=== PATIENT | male | born 1990 | race Caucasian/White ===

== ENCOUNTER 2022-06-16 07:01 | Emergency (ER) | payer MEDICAID, SELFPAY ==
--- NOTE | ~2022-06-16 | XR_ITS ---
EXAMINATION: XR CHEST CLINICAL INFORMATION: SOB and cough COMPARISON: None TECHNIQUE: Frontal view of the chest was obtained. FINDINGS: No significant abnormality is noted involving the heart, lungs, mediastinum, bony thorax or soft tissues. XR/XR chest 1V IMPRESSION: Unremarkable chest examination.
[2022-06-16 07:08] VITALS: BP 138/80; PULSE 110; RESP 18; TEMP 36.7; O2SAT 94; BMI 32.9
[2022-06-16 07:21] VITALS: BP 142/87; PULSE 108; RESP 16; TEMP 36.9; O2SAT 94
--- NOTE | 2022-06-16 07:43 | PC.NURSE ---
Addendum entered by Lavell Dickinson RN 06/16/22 09:06: AUDIBLE WHEEZES, PT REPORTED ABD DISTENSION, NON NOTED ON ASSESSMENT, LAST BM THIS MORNING. Original Note: PT REPORTS DIFFICULTY BREATHING SINCE WAKING UP THIS MORNING. HE REPORTS THAT HIS CHEST HURTS TO BREATH AND COUGH AND IT PREVENTS HIM FROM TAKING A DEEP BREATH OR COUGH EFFECTIVELY. PT HAS HX OF ASTHMA, DOES NOT HAVE PUMP.
--- NOTE | 2022-06-16 07:44 | ED_ITS ---
HPI - SOB/Dyspnea General Chief Complaint: Dyspnea Stated Complaint: diff breathing Time Seen by Provider: 06/16/22 07:29 Source: patient and family Mode of arrival: ambulatory Limitations: no limitations History of Present Illness HPI Narrative: 32-year-old male came in for evaluation of shortness of breath and coughing has been getting worse started about 2 weeks ago. Patient is actively smoker, been having shortness of breath and wheezing with coughing with green sputum patient cannot take a deep breath because of chest pain with coughing. No fever, no chills, no recent travel, patient recently had the influenza infection currently decline flu-like symptoms. Related Data Previous Rx's Medication Instructions Recorded albuterol sulfate 2.5 mg/3 mL 2.5 mg (3 mL) inhalation Q4-6H PRN 06/16/22 (0.083 %) solution for nebulization shortness of breath or wheezing #90 mL albuterol sulfate 90 mcg/actuation 1 inh inhalation QID PRN shortness 06/16/22 aerosol inhaler (ProAir HFA) of breath or wheezing #6.7 grams azithromycin 250 mg tablet See Rx Instructions PO .COMPLEX #6 06/16/22 (Zithromax Z-Sheng) tabs prednisone 20 mg tablet 20 mg PO BID #10 tabs 06/16/22 Allergies Allergy/AdvReac Type Severity Reaction Status Date / Time No Known Allergies Allergy Unverified 02/17/20 16:24 Review of Systems Review of Systems: All other systems are reviewed and are negative Constitutional: Reports as per HPI and Reports no additional constitutional complaints Eyes: Reports as per HPI and Reports no additional eye complaints Reports system reviewed and no additional complaints, except as documented Cardiovascular: Reports as per HPI and Reports no additional cardiovascular complaints Respiratory: Reports as per HPI and Reports no additional respiratory complaints Gastrointestinal: Reports as per HPI and Reports no additional gastrointestinal complaints Genitourinary: Reports no additional female genitourinary complaints Musculoskeletal: Reports no additional musculoskeletal complaints Skin/Breast: Reports system reviewed and no additional complaints, except as docu Psychiatric: Reports no additional psychiatric complaints Endocrine: Reports no additional endocrine complaints Hematologic/Lymphatic: Reports no additional hematologic/lymphatic complaints Allergic/Immunologic: Reports no additional allergic/immunologic complaints Reports system reviewed and no additional complaints, except as documented and Reports Abnormal speech present [facility] Social History Social History Smoked in Last 30 Days: Yes Use of substances other than those prescribed or required for medical reasons: Yes Substance Use Type: Marijuana Advance Directives: No Physical Exam Vital Signs: Vital Signs: Last Vital Signs Temp 98.5 F 06/16/22 07:21 Pulse 88 06/16/22 08:40 Resp 18 06/16/22 08:40 BP 142/87 H 06/16/22 07:21 Pulse Ox 94 06/16/22 07:21 O2 Del Method 06/16/22 07:21 BMI result Body Mass Index 32.9 Vital signs have been reviewed as appeared to be correct. Blood pressure normal. Heart rate normal. Respiration rate normal. Temperature normal. Oxygen saturation normal. Appearance: Alert. Oriented X3. No acute distress. Head: Normal external exam. Normocephalic. Atraumatic. No Kaufman signs noted. No raccoon eyes noted Eyes: PERRLA. EOMI. Conjunctiva and sclera normal. Eyelids normal. ENT: TM's Normal. Pharynx normal. Uvula midline. Moist mucous membranes. No trismus noted. No drooling noted. No muffled voice noted. Neck: Normal inspection. Neck supple. FROM. No adenopathy. Thyroid Normal. No meningeal signs. No neck mass noted. CVS: Normal heart rate and rhythm. Heart sound normal. No murmurs noted. Pulses normal throughout. Respiratory: No respiratory distress. Painless inspiration. Breath sounds normal. Mild diffuse expiratory wheezing with prolonged expiration. Chest nontender. No accessory muscle usage noted or decreased air movement noted. Abdomen: Soft and nontender. Bowel sounds normal in all 4 quadrants. No distention noted. No organomegaly noted. No visible injury noted. Back: No CVA tenderness. Full range of motion noted. Skin: Skin warm and dry. Normal skin color. Normal skin turgor. No rashes/lesions/lacerations noted. Extremities: No lower extremity edema. Extremities exhibit normal range of motion. Extremities nontender. Neuro: Oriented X 3. Cranial nerve exam: II-XII are grossly intact No motor deficit. No sensory deficit. Reflexes normal. Course Course Course Narrative: 32-year-old male with history of asthma came in with coughing and difficulty breathing exam is consistent with an asthma exacerbation/bronchitis. Patient is a smoker will start the patient on prednisone for 5 days, albuterol, Z-Sheng. Medications Administered Discontinued Medications Generic Name Dose Route Start Last Admin Trade Name Frankq PRN Reason Stop Dose Admin Albuterol Sulfate 2.5 mg 06/16/22 07:42 06/16/22 08:37 Albuterol Sulfate (0.083%) 2.5 Mg/3 Ml Vial.Neb INHALE 06/16/22 07:43 2.5 mg ONCE ONE Administration Albuterol Sulfate 5 mg/ 7.5 mg 06/16/22 07:42 06/16/22 08:36 Albuterol Sulfate 2.5 mg INHALE 06/16/22 07:43 7.5 mg ONCE ONE Administration Guaifenesin 600 mg 06/16/22 08:07 06/16/22 08:21 Guaifenesin [place] 600 Mg Tab.Er.12h PO 06/16/22 08:08 600 mg ONCE ONE Administration Magnesium Sulfate 2 gm in 50 mls @ 25 mls/hr 06/16/22 07:42 06/16/22 08:01 Magnesium Sulfate/H2o IV 06/16/22 09:41 25 mls/hr ONCE ONE Administration Ipratropium [place] 0.5 mg 06/16/22 07:42 06/16/22 08:36 Ipratropium [place] 0.5 Mg/2.5 Ml Solution INHALE 06/16/22 07:43 0.5 mg ONCE ONE Administration Methylprednisolone Sodium Succinate 125 mg 06/16/22 07:42 06/16/22 08:01 Methylprednisolone Sod Succ 125 Mg/2 Ml Vial IVPUSH 06/16/22 07:43 125 mg ONCE ONE Administration Ondansetron HCl 4 mg 06/16/22 08:07 06/16/22 08:22 Ondansetron Hcl 4 Mg/2 Ml Vial IVPUSH 06/16/22 08:08 4 mg ONCE ONE Administration Medical Decision Making Differential Diagnosis Differential Diagnoses: The differential diagnosis associated with the presentation includes (Acute asthma exacerbation, acute bronchitis, pneumonia, viral bronchitis.) Lab Data MDM Lab Attestation statement: I reviewed the patient's lab results. Labs: Lab Results 06/16/22 Range/Units 07:46 Influenza Type A (PCR) NEGATIVE (Negative) Influenza Type B (PCR) NEGATIVE (Negative) RSV RNA Qual (PCR) NEGATIVE (Negative) SARS-CoV-2 RNA (RT-PCR) NEGATIVE (Negative) Independent Interpretation I performed an independent interpretation of an: Plain X-Ray (Chest: No acute infiltrate.) Radiology Impression Discussion of test interpretation with radiology: I have reviewed the radiologist's reading. Discharge Plan Discharge Clinical Impression: Asthma with exacerbation Patient Disposition: Home, Self-Care Instructions: Asthma (ED) Prescriptions: New prednisone 20 mg tablet 20 mg PO BID Qty: 10 0RF albuterol sulfate 2.5 mg /3 mL (0.083 %) solution for nebulization 2.5 mg inhalation Q4-6H PRN (Reason: shortness of breath or wheezing) Qty: 90 0RF albuterol sulfate [ProAir HFA] 90 mcg/actuation HFA aerosol inhaler 1 inh inhalation QID PRN (Reason: shortness of breath or wheezing) Qty: 6.7 0RF azithromycin [Zithromax Z-Sheng] 250 mg tablet See Rx Instructions .ROUTE .COMPLEX Qty: 6 0RF Rx Instructions: For 250 mg dose pack: take 500 mg today (day 1), then 250 mg for 4 days (days 2-5) Stand Alone Forms: Work/School Release
[2022-06-16] MEDS: methylPREDNISolone Sod Succ 125 MG/2 ML VIAL IVPUSH (08:01)
[2022-06-16] MEDS: Magnesium Sulfate/H2O 2 GM/50 ML PIGGYBACK IV (08:01)
[2022-06-16] MEDS: guaiFENesin LA 600 MG TAB.ER.12H PO (08:21)
[2022-06-16] MEDS: ondansetron HCL 4 MG/2 ML VIAL IVPUSH (08:22)
[2022-06-16] MEDS: Ipratropium Bromide 0.5 MG/2.5 ML SOLUTION INHALE (08:36)
[2022-06-16] MEDS: Albuterol Sulfate 5 MG, Albuterol Sulfate (0.083%) 2.5 MG 7.5 MG INHALE (08:36)
[2022-06-16] MEDS: Albuterol Sulfate (0.083%) 2.5 MG/3 ML VIAL.NEB INHALE (08:37)
[2022-06-16 08:40] VITALS: PULSE 88; RESP 18; O2SAT 94
[2022-06-16 08:40] LABS: Influenza A PCR NEGATIVE (Negative); Influenza B PCR NEGATIVE (Negative); Resp Syncy Virus RNA Qual PCR NEGATIVE (Negative); SARS COV2 PCR INHOUSE NEGATIVE (Negative)
--- NOTE | 2022-06-16 09:18 | PC.NURSE ---
IV INSERTED, MEDS GIVEN DOCUMENTED.
[2022-06-16 10:09] VITALS: BP 134/74; PULSE 98; RESP 16; O2SAT 92
== END 2022-06-16 10:24 | disposition home or self-care (01) ==
PROVIDERS: Emergency Provider Emergency Medicine
DX: J45.901 Unspecified asthma with (acute) exacerbation (principal); R06.02 Shortness of breath; Z20.822 Contact with and (suspected) exposure to COVID-19; Z20.828 Contact with and (suspected) exposure to other viral communicable diseases; Z79.899 Other long term (current) drug therapy
CPT/HCPCS: 0241U; 71045; 94640; 96365; 96366; 96375; 99284; 99285; J2405; J2930; J3475

== ENCOUNTER 2022-08-04 17:13 | Emergency (ER) | payer MEDICAID, SELFPAY ==
--- NOTE | ~2022-08-04 | XR_ITS ---
EXAMINATION: XR CHEST CLINICAL INFORMATION: Chest pain. COMPARISON: Chest radiograph 06/16/2022. TECHNIQUE: 2 views of the chest were obtained. FINDINGS: No significant abnormality is noted involving the heart, lungs, mediastinum, bony thorax or soft tissues. XR/XR chest 2V IMPRESSION: Unremarkable examination.
--- NOTE | 2022-08-04 17:15 | ECG_ITS ---
Test Reason : CHEST PAIN Blood Pressure : / mmHG Vent. Rate : 093 BPM Atrial Rate : 093 BPM P-R Int : 142 ms QRS Dur : 082 ms QT Int : 346 ms P-R-T Axes : 062 071 017 degrees QTc Int : 430 ms Normal sinus rhythm Normal ECG No previous ECGs available Referred By: Santa Fong Electronically Signed By:JENNIFER SAUCEDO
--- NOTE | 2022-08-04 17:37 | ED.URI ---
HPI - URI/Sore Throat General Chief Complaint: Upper Respiratory Symptoms <Santa Fong NP - Last Filed: 08/04/22 17:41> Stated Complaint: chest pain, difficulty breathing <Santa Fong NP - Last Filed: 08/04/22 17:41> Time Seen by Provider: 08/04/22 19:13 <Santa Fong NP - Last Filed: 08/04/22 17:41> Source: patient <Brie Zepeda NP - Last Filed: 08/04/22 23:32> Mode of arrival: ambulatory <RUPERTO Chung Last Filed: 08/04/22 23:32> Limitations: no limitations <Brie Zepeda NP - Last Filed: 08/04/22 23:32> History of Present Illness HPI Narrative: 32-year-old male presents with shortness breath, chest tightness, back pain, was tested positive for COVID-19 on Friday. Patient states he is unable to catch his breath. <Brie Zepeda NP - Last Filed: 08/04/22 23:32> MD elicited complaint: cough and other (Wheezing, shortness breath) <Brie Zepeda NP - Last Filed: 08/04/22 23:32> Pertinent past history: other (COVID-19) <Brie Zepeda NP - Last Filed: 08/04/22 23:32> Onset (ago): day(s) <Brie Zepeda NP - Last Filed: 08/04/22 23:32> Consistency: constant <Brie Zepeda NP - Last Filed: 08/04/22 23:32> Severity: moderate <RUPERTO Chung Last Filed: 08/04/22 23:32> Pain scale (0-10): 6 <Brie Zepeda NP - Last Filed: 08/04/22 23:32> Description of mucous: clear <Brie Zepeda NP - Last Filed: 08/04/22 23:32> Able to tolerate fluids by mouth: Yes <Brie Zepeda NP - Last Filed: 08/04/22 23:32> Exacerbating factors: exertion, speaking and deep breaths <Brie Zepeda NP - Last Filed: 08/04/22 23:32> Relieving factors: nothing <Brie Zepeda NP - Last Filed: 08/04/22 23:32> Associated symptoms: headache, nasal congestion, cough and shortness of breath <Brie Zepeda NP - Last Filed: 08/04/22 23:32> Treatments prior to arrival: other (Albuterol, Tylenol, Motrin) <RUPERTO Chung Last Filed: 08/04/22 23:32> Related Data Home Medications: Previous Rx's Medication Instructions Recorded albuterol sulfate 2.5 mg/3 mL 2.5 mg (3 mL) inhalation Q4-6H PRN 06/16/22 (0.083 %) solution for nebulization shortness of breath or wheezing #90 mL albuterol sulfate 90 mcg/actuation 1 inh inhalation QID PRN shortness 06/16/22 aerosol inhaler (ProAir HFA) of breath or wheezing #6.7 grams azithromycin 250 mg tablet See Rx Instructions PO .COMPLEX #6 06/16/22 (Zithromax Z-Sheng) tabs prednisone 20 mg tablet 20 mg PO BID #10 tabs 06/16/22 albuterol sulfate 2.5 mg/3 mL 2.5 mg (3 mL) inhalation Q6H #75 mL 08/04/22 (0.083 %) solution for nebulization albuterol sulfate 90 mcg/actuation 2 puff inhalation Q4-6H PRN 08/04/22 aerosol inhaler shortness of breath or wheezing #6.7 grams prednisone 20 mg tablet 40 mg PO DAILY 5 days #10 tabs 08/04/22 <Santa Fong NP - Last Filed: 08/04/22 17:41> Allergies/Adverse Reactions: Allergies Allergy/AdvReac Type Severity Reaction Status Date / Time No Known Allergies Allergy Unverified 02/17/20 16:24 <Santa Fong NP - Last Filed: 08/04/22 17:41> Review of Systems Review of Systems: Constitutional: No Fever, No Chills Cardiovascular: Positive Chest wall Pain, positive SOB Respiratory: Positive Cough, positive Dyspnea, positive wheezing Gastrointestinal: No Nausea, No Vomiting, No Diarrhea, No abdominal Pain Genitourinary: No Dysuria, No Hematuria Musculoskeletal: positive back pain, No Myalgias, No Joint Swelling Skin: No Skin lacerations, No rash Neuro: No Weakness, No Dizziness, phos Headache <Brie Zepeda NP - Last Filed: 08/04/22 23:32> Yes all other systems are reviewed and are negative <Brie Zepeda NP - Last Filed: 08/04/22 23:32> REPLACED BY [facility] Past Medical History Attestation statement: The following information was validated with the patient. <Brie Zepeda NP - Last Filed: 08/04/22 23:32> Source: old records reviewed <Brie Zepeda NP - Last Filed: 08/04/22 23:32> Social History Social History: Social History Substance Use Type: Marijuana Advance Directives: No Advance Directives Information Provided: No <Santa Fong NP - Last Filed: 08/04/22 17:41> Physical Exam Vital Signs: Vital Signs: Last Vital Signs Temp 98.4 F 08/04/22 21:58 Pulse 98 08/04/22 21:58 Resp 20 08/04/22 21:04 BP 147/76 H 08/04/22 21:58 Pulse Ox 98 08/04/22 21:58 O2 Del Method 08/04/22 21:58 BMI result Body Mass Index 34.3 <Santa Fong NP - Last Filed: 08/04/22 17:41> Vital Signs: Last Vital Signs Temp 98.4 F 08/04/22 21:58 Pulse 98 08/04/22 21:58 Resp 20 08/04/22 21:04 BP 147/76 H 08/04/22 21:58 Pulse Ox 98 08/04/22 21:58 O2 Del Method 08/04/22 21:58 BMI result Body Mass Index 34.3 <Brie Zepeda NP - Last Filed: 08/04/22 23:32> Appearance: Alert. Oriented X3. Moderate distress. Eyes: Pupils equal, round and reactive to light. EOMI. Sclera nonicteric. ENT: Pharynx normal. Neck: Normal inspection. Neck supple. No vertebral tenderness step-offs. No cervical lymphadenopathy. CVS: Normal heart rate and rhythm. Pulses normal. Respiratory: Mild respiratory distress. Coarse lung sounds, expiratory wheezing throughout, tight, poor airflow Abdomen: Soft and nontender. Skin: Skin warm and dry. Normal skin color. Normal skin turgor. Extremities: No lower extremity edema. Gait well-balanced well coordinated. Neuro: No motor deficit. No sensory deficit. Cranial nerves 2-12 intact <Brie Zepeda BUSINESS TRANSFORMATION MANAGER - Last Filed: 08/04/22 23:32> Course Course Course Narrative: This is a rapid medical exam. Deferred additional HPI, ROS, PE to primary provider. 32 yo male with history of asthma who tested positive for COVID Friday here difficulty breathing, upper back pain with breathing/cough, chest tightness, cough since . Initially had fevers up to 104F but has not had a fever since Friday. Using inhaler but ran out, has no more albuterol nebulizer as they are on backorder . Will need labs, EKG. CXR, covid screen. VSS <Santa Fong, BUSINESS TRANSFORMATION MANAGER - Last Filed: 08/04/22 17:41> This is a rapid medical exam. Deferred additional HPI, ROS, PE to primary provider. 32 yo male with history of asthma who tested positive for COVID Friday here difficulty breathing, upper back pain with breathing/cough, chest tightness, cough since . Initially had fevers up to 104F but has not had a fever since Friday. Using inhaler but ran out, has no more albuterol nebulizer as they are on backorder . Will need labs, EKG. CXR, covid screen. VSS 32-year-old male presents with shortness of breath, chest tightness, back pain, cough, worse when taking a deep breath, tested positive for COVID-19 on Friday. Patient has been unable to obtain nebulizer treatments due to medication shortage is at the local pharmacy. Patient is able to speak in complete sentences, appears uncomfortable, lung sounds are coarse, expiratory wheezing with poor air flow. Order for albuterol an hour long ordered at 17:41. Will give dexamethasone instead of Solu-Medrol per patient request because he does not want an IV started. He does understand that if his symptoms worsen or his oxygen saturation decreases, that he would need 1. 19:00 lung sounds continue to be coarse, with improved flow, order for albuterol hour long. 20:31 lung sounds continue to be tight course. Patient is complaining of back pain because of coughing. Order for DuoNeb are long, and guaifenesin with codeine. 21:15 lungs sounds improved, still wheezy. Ambulatory pulse ox 96% on room air. Able to speak in complete sentences. No tracheal stridor. 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 Will give patient prednisone, he does understand that he should start this medication on Friday as he has had dexamethasone. Does understand that if symptoms worsen that he will return immediately. Patient verbalized understanding of and agrees to plan of care discharge home. Verbalized understanding of signs and symptoms indicating need for emergent intervention. <Brie Zepeda BUSINESS TRANSFORMATION MANAGER - Last Filed: 08/04/22 23:32> Medications Administered Discontinued Medications Generic Name Dose Route Start Last Admin Trade Name Frankq PRN Reason Stop Dose Admin Albuterol Sulfate 2 puff 08/04/22 17:41 08/04/22 18:05 Albuterol Sulfate 90 Mcg 8 Gm Inhaler INHALE 08/04/22 17:42 2 puff ONCE ONE Administration Albuterol Sulfate 10 mg 08/04/22 19:16 08/04/22 19:34 Albuterol Sulfate (0.083%) 2.5 Mg/3 Ml Vial.Neb INHALE 08/04/22 19:17 10 mg ONCE ONE Administration Albuterol Sulfate 2 puff 08/04/22 22:19 08/04/22 23:06 Albuterol Sulfate 90 Mcg 8 Gm Inhaler INHALE 08/04/22 22:20 2 puff ONCE ONE Administration Albuterol Sulfate 10 mg/ 0 mg 08/04/22 20:31 08/04/22 21:03 Ipratropium Garrison 0.5 mg INHALE 08/04/22 20:32 1 each ONCE ONE Administration Dexamethasone 10 mg 08/04/22 19:46 08/04/22 20:20 Dexamethasone 2 Mg Tablet PO 08/04/22 19:47 10 mg ONCE ONE Administration Guaifenesin/Codeine Phosphate 10 ml 08/04/22 20:31 08/04/22 20:58 Guaifen/Codeine Sf 200/20/10ml 10 Ml Liquid PO 08/04/22 20:32 Not Given ONCE ONE Methylprednisolone Sodium Succinate 125 mg 08/04/22 19:16 08/04/22 19:46 Methylprednisolone Sod Succ 125 Mg/2 Ml Vial IVPUSH 08/04/22 19:17 Not Given ONCE ONE <Santa Fong NP - Last Filed: 08/04/22 17:41> Medications Administered Discontinued Medications Generic Name Dose Route Start Last Admin Trade Name Beata PRN Reason Stop Dose Admin Albuterol Sulfate 2 puff 08/04/22 17:41 08/04/22 18:05 Albuterol Sulfate 90 Mcg 8 Gm Inhaler INHALE 08/04/22 17:42 2 puff ONCE ONE Administration Albuterol Sulfate 10 mg 08/04/22 19:16 08/04/22 19:34 Albuterol Sulfate (0.083%) 2.5 Mg/3 Ml Vial.Neb INHALE 08/04/22 19:17 10 mg ONCE ONE Administration Albuterol Sulfate 2 puff 08/04/22 22:19 08/04/22 23:06 Albuterol Sulfate 90 Mcg 8 Gm Inhaler INHALE 08/04/22 22:20 2 puff ONCE ONE Administration Albuterol Sulfate 10 mg/ 0 mg 08/04/22 20:31 08/04/22 21:03 Ipratropium Garrison 0.5 mg INHALE 08/04/22 20:32 1 each ONCE ONE Administration Dexamethasone 10 mg 08/04/22 19:46 08/04/22 20:20 Dexamethasone 2 Mg Tablet PO 08/04/22 19:47 10 mg ONCE ONE Administration Guaifenesin/Codeine Phosphate 10 ml 08/04/22 20:31 08/04/22 20:58 Guaifen/Codeine Sf 200/20/10ml 10 Ml Liquid PO 08/04/22 20:32 Not Given ONCE ONE Methylprednisolone Sodium Succinate 125 mg 08/04/22 19:16 08/04/22 19:46 Methylprednisolone Sod Succ 125 Mg/2 Ml Vial IVPUSH 08/04/22 19:17 Not Given ONCE ONE <Brie Zepeda NP - Last Filed: 08/04/22 23:32> Medical Decision Making Differential Diagnosis Differential Diagnoses: The differential diagnosis associated with the presentation includes <Brie Zepeda NP - Last Filed: 08/04/22 23:32> Asthma, COVID <Brie Zepeda NP - Last Filed: 08/04/22 23:32> Admission/Observation Consideration of admission/observation: Escalation of care including admission/observation considered <Brie Zepeda NP - Last Filed: 08/04/22 23:32> Admission considered if ambulatory pulse ox less than 90 <Brie Zepeda NP - Last Filed: 08/04/22 23:32> Lab Data MDM Lab Attestation statement: I reviewed the patient's lab results. <Brie Zepeda NP - Last Filed: 08/04/22 23:32> Result Diagrams: 08/04/22 19:06 08/04/22 19:06 <Santa Fong BUSINESS TRANSFORMATION MANAGER - Last Filed: 08/04/22 17:41> Labs: Lab Results 08/04/22 08/04/22 08/04/22 Range/Units 19:06 19:06 19:06 WBC 6.6 (4.8-10.8) X10*3/uL RBC 5.45 (4.60-5.80) X10*6/uL Hgb 15.8 (14.0-18.0) g/dl Hct 46.2 (42.0-52.0) % MCV 84.8 (80.0-98.0) fL MCH 29.0 (27.0-33.0) pg MCHC 34.2 (31.0-36.0) g/dl RDW 12.9 (11.0-16.0) % Plt Count 228 (160-400) X10*3/uL MPV 10.3 (9.4-12.4) fL Immature Gran % (Auto) 0.3 (0.0-0.4) % Neut % (Auto) 59.8 (45-73) % Lymph % (Auto) 27.8 (20-40) % [place] % (Auto) 8.8 (2-11) % Eos % (Auto) 3.0 (0-4) % Baso % (Auto) 0.3 (0-2) % Lymph # (Auto) 1.8 (1.2-4.9) X10*3/uL [place] # (Auto) 0.6 (0.1-1.2) X10*3/uL Eos # (Auto) 0.2 (0.0-0.4) X10*3/uL Baso # (Auto) 0.0 (0.0-0.2) X10*3/uL Abs Immat Gran (auto) 0.02 (0.00-0.03) X10*3/uL Absolute Neuts (auto) 4.0 (2.0-8.3) x10*3/uL Absolute Nucleated RBC 0.000 (0.0-0.012) X10*3/uL Nucleated RBC % (auto) 0.0 (0.0-0.2) /100WBC PT 11.7 (10.0-13.1) SEC INR 1.0 (0.9-1.1) Sodium 140 (135-145) mmol/L Potassium 4.9 (3.3-5.1) mmol/L Chloride 106 (96-108) mmol/L Carbon Dioxide 26 (22-29) mmol/L Anion Gap 13 (12-20) BUN 17 H (9-16) mg/dL Creatinine 1.12 (0.5-1.4) mg/dL Estim Creat Clear Calc 97.0 Estimated GFR > 60 Random Glucose 88 (60-115) mg/dL Calcium 8.9 (8.4-10.2) mg/dL Total Bilirubin 0.9 (0.0-1.0) mg/dL Direct Bilirubin 0.2 (0.0-0.5) mg/dL AST 30 (5-37) U/L ALT 33 (0-40) U/L Alkaline Phosphatase 54 (39-117) U/L Troponin I High Sens (<3.5-35.0) ng/L Total Protein 6.6 (6.5-8.0) g/dL Albumin 4.1 (3.5-5.0) g/dL COVID-19 (MASIHA) (Negative) COVID-19 Clin Com 08/04/22 08/04/22 Range/Units 19:06 19:06 WBC (4.8-10.8) X10*3/uL RBC (4.60-5.80) X10*6/uL Hgb (14.0-18.0) g/dl Hct (42.0-52.0) % MCV (80.0-98.0) fL MCH (27.0-33.0) pg MCHC (31.0-36.0) g/dl RDW (11.0-16.0) % Plt Count (160-400) X10*3/uL MPV (9.4-12.4) fL Immature Gran % (Auto) (0.0-0.4) % Neut % (Auto) (45-73) % Lymph % (Auto) (20-40) % [place] % (Auto) (2-11) % Eos % (Auto) (0-4) % Baso % (Auto) (0-2) % Lymph # (Auto) (1.2-4.9) X10*3/uL [place] # (Auto) (0.1-1.2) X10*3/uL Eos # (Auto) (0.0-0.4) X10*3/uL Baso # (Auto) (0.0-0.2) X10*3/uL Abs Immat Gran (auto) (0.00-0.03) X10*3/uL Absolute Neuts (auto) (2.0-8.3) x10*3/uL Absolute Nucleated RBC (0.0-0.012) X10*3/uL Nucleated RBC % (auto) (0.0-0.2) /100WBC PT (10.0-13.1) SEC INR (0.9-1.1) Sodium (135-145) mmol/L Potassium (3.3-5.1) mmol/L Chloride (96-108) mmol/L Carbon Dioxide (22-29) mmol/L Anion Gap (12-20) BUN (9-16) mg/dL Creatinine (0.5-1.4) mg/dL Estim Creat Clear Calc Estimated GFR Random Glucose (60-115) mg/dL Calcium (8.4-10.2) mg/dL Total Bilirubin (0.0-1.0) mg/dL Direct Bilirubin (0.0-0.5) mg/dL AST (5-37) U/L ALT (0-40) U/L Alkaline Phosphatase (39-117) U/L Troponin I High Sens < 3.5 (<3.5-35.0) ng/L Total Protein (6.5-8.0) g/dL Albumin (3.5-5.0) g/dL COVID-19 (MAISHA) Positive A (Negative) COVID-19 Clin Com See Note <Santa Fong, BUSINESS TRANSFORMATION MANAGER - Last Filed: 08/04/22 17:41> Lab Results 08/04/22 08/04/22 08/04/22 Range/Units 19:06 19:06 19:06 WBC 6.6 (4.8-10.8) X10*3/uL RBC 5.45 (4.60-5.80) X10*6/uL Hgb 15.8 (14.0-18.0) g/dl Hct 46.2 (42.0-52.0) % MCV 84.8 (80.0-98.0) fL MCH 29.0 (27.0-33.0) pg MCHC 34.2 (31.0-36.0) g/dl RDW 12.9 (11.0-16.0) % Plt Count 228 (160-400) X10*3/uL MPV 10.3 (9.4-12.4) fL Immature Gran % (Auto) 0.3 (0.0-0.4) % Neut % (Auto) 59.8 (45-73) % Lymph % (Auto) 27.8 (20-40) % [place] % (Auto) 8.8 (2-11) % Eos % (Auto) 3.0 (0-4) % Baso % (Auto) 0.3 (0-2) % Lymph # (Auto) 1.8 (1.2-4.9) X10*3/uL [place] # (Auto) 0.6 (0.1-1.2) X10*3/uL Eos # (Auto) 0.2 (0.0-0.4) X10*3/uL Baso # (Auto) 0.0 (0.0-0.2) X10*3/uL Abs Immat Gran (auto) 0.02 (0.00-0.03) X10*3/uL Absolute Neuts (auto) 4.0 (2.0-8.3) x10*3/uL Absolute Nucleated RBC 0.000 (0.0-0.012) X10*3/uL Nucleated RBC % (auto) 0.0 (0.0-0.2) /100WBC PT 11.7 (10.0-13.1) SEC INR 1.0 (0.9-1.1) Sodium 140 (135-145) mmol/L Potassium 4.9 (3.3-5.1) mmol/L Chloride 106 (96-108) mmol/L Carbon Dioxide 26 (22-29) mmol/L Anion Gap 13 (12-20) BUN 17 H (9-16) mg/dL Creatinine 1.12 (0.5-1.4) mg/dL Estim Creat Clear Calc 97.0 Estimated GFR > 60 Random Glucose 88 (60-115) mg/dL Calcium 8.9 (8.4-10.2) mg/dL Total Bilirubin 0.9 (0.0-1.0) mg/dL Direct Bilirubin 0.2 (0.0-0.5) mg/dL AST 30 (5-37) U/L ALT 33 (0-40) U/L Alkaline Phosphatase 54 (39-117) U/L Troponin I High Sens (<3.5-35.0) ng/L Total Protein 6.6 (6.5-8.0) g/dL Albumin 4.1 (3.5-5.0) g/dL COVID-19 (MAISHA) (Negative) COVID-19 Clin Com 08/04/22 08/04/22 Range/Units 19:06 19:06 WBC (4.8-10.8) X10*3/uL RBC (4.60-5.80) X10*6/uL Hgb (14.0-18.0) g/dl Hct (42.0-52.0) % MCV (80.0-98.0) fL MCH (27.0-33.0) pg MCHC (31.0-36.0) g/dl RDW (11.0-16.0) % Plt Count (160-400) X10*3/uL MPV (9.4-12.4) fL Immature Gran % (Auto) (0.0-0.4) % Neut % (Auto) (45-73) % Lymph % (Auto) (20-40) % [place] % (Auto) (2-11) % Eos % (Auto) (0-4) % Baso % (Auto) (0-2) % Lymph # (Auto) (1.2-4.9) X10*3/uL [place] # (Auto) (0.1-1.2) X10*3/uL Eos # (Auto) (0.0-0.4) X10*3/uL Baso # (Auto) (0.0-0.2) X10*3/uL Abs Immat Gran (auto) (0.00-0.03) X10*3/uL Absolute Neuts (auto) (2.0-8.3) x10*3/uL Absolute Nucleated RBC (0.0-0.012) X10*3/uL Nucleated RBC % (auto) (0.0-0.2) /100WBC PT (10.0-13.1) SEC INR (0.9-1.1) Sodium (135-145) mmol/L Potassium (3.3-5.1) mmol/L Chloride (96-108) mmol/L Carbon Dioxide (22-29) mmol/L Anion Gap (12-20) BUN (9-16) mg/dL Creatinine (0.5-1.4) mg/dL Estim Creat Clear Calc Estimated GFR Random Glucose (60-115) mg/dL Calcium (8.4-10.2) mg/dL Total Bilirubin (0.0-1.0) mg/dL Direct Bilirubin (0.0-0.5) mg/dL AST (5-37) U/L ALT (0-40) U/L Alkaline Phosphatase (39-117) U/L Troponin I High Sens < 3.5 (<3.5-35.0) ng/L Total Protein (6.5-8.0) g/dL Albumin (3.5-5.0) g/dL COVID-19 (MAISHA) Positive A (Negative) COVID-19 Clin Com See Note <Brie Zepeda NP - Last Filed: 08/04/22 23:32> Independent Interpretation I performed an independent interpretation of an: EKG and Plain X-Ray <Brie Zepeda NP - Last Filed: 08/04/22 23:32> Interpretation: Normal sinus rhythm Normal ECG No previous ECGs available Vent. rate 93 BPM HI interval 142 ms QRS duration 82 ms QT/QTc 346/430 ms P-R-T axes 62 71 17 04-AUG-2022 17:20:50 <Brie Zepeda NP - Last Filed: 08/04/22 23:32> Radiology Impression Discussion of test interpretation with radiology: I have reviewed the radiologist's reading. <Brie Zepeda NP - Last Filed: 08/04/22 23:32> Radiologist Impression: EXAMINATION: XR CHEST CLINICAL INFORMATION: Chest pain. COMPARISON: Chest radiograph 06/16/2022. TECHNIQUE: 2 views of the chest were obtained. FINDINGS: No significant abnormality is noted involving the heart, lungs, mediastinum, bony thorax or soft tissues. XR/XR chest 2V IMPRESSION: Unremarkable examination. <Brie Zepeda NP - Last Filed: 08/04/22 23:32> External Record Review External record reviewed: Outpatient record, Prior outpatient labs and Prior outpatient radiology <Brie Zepeda NP - Last Filed: 08/04/22 23:32> Prescription Management I considered prescription management with: Other (Prednisone) <Brie Zepeda NP - Last Filed: 08/04/22 23:32> Critical Care Time Critical Care Time Critical Care Time: Yes <Brie Zepeda NP - Last Filed: 08/04/22 23:32> Total Critical Care Time: 45 <Brie Zepeda NP - Last Filed: 08/04/22 23:32> Attestation: I have personally provided critical care time exclusive of time spent on separately billable procedures. Time includes review of laboratory data, radiology results, discussion with consultants, and monitoring for potential decompensation. Interventions were performed as documented. <Brie Zepeda NP - Last Filed: 08/04/22 23:32> Discharge Plan Discharge Clinical Impression: COVID-19 <Santa Fong NP - Last Filed: 08/04/22 17:41> Patient Disposition: Home, Self-Care <Santa Fong NP - Last Filed: 08/04/22 17:41> Instructions: Covid-19 Viral Syndrome and Novel Coronavirus (ED) Hey/Ath, COVID-19 (Coronavirus Disease 2019) (ED) <Santa Fong NP - Last Filed: 08/04/22 17:41> Additional Instructions: You were evaluated for shortness of breaths due to COVID. Please take albuterol nebulizers as needed. Use albuterol inhaler 2 puffs every 4-6 hours. Take prednisone 40 mg daily for the next 5 days. Start this medication on Friday. Drink plenty of fluids. If symptoms worsen please return to the emergency department immediately. Thank you for choosing this emergency department for evaluation. Please follow-up with primary care physician as needed. Return to the emergency department for any new, concerning, or worsening symptoms. <Santa Fong NP - Last Filed: 08/04/22 17:41> Prescriptions: New albuterol sulfate 90 mcg/actuation HFA aerosol inhaler 2 puff inhalation Q4-6H PRN (Reason: shortness of breath or wheezing) Qty: 6.7 2RF Rx Instructions: May substitute for medication equivalent accepted the patient's insurance. albuterol sulfate 2.5 mg /3 mL (0.083 %) solution for nebulization 2.5 mg inhalation Q6H Qty: 75 0RF prednisone 20 mg tablet 40 mg PO DAILY 5 Days Qty: 10 0RF Rx Instructions: Start this medication on Friday No Action prednisone 20 mg tablet 20 mg PO BID Qty: 10 0RF albuterol sulfate 2.5 mg /3 mL (0.083 %) solution for nebulization 2.5 mg inhalation Q4-6H PRN (Reason: shortness of breath or wheezing) Qty: 90 0RF albuterol sulfate [ProAir HFA] 90 mcg/actuation HFA aerosol inhaler 1 inh inhalation QID PRN (Reason: shortness of breath or wheezing) Qty: 6.7 0RF azithromycin [Zithromax Z-Sheng] 250 mg tablet See Rx Instructions .ROUTE .COMPLEX Qty: 6 0RF Rx Instructions: For 250 mg dose pack: take 500 mg today (day 1), then 250 mg for 4 days (days 2-5) <Santa Fong NP - Last Filed: 08/04/22 17:41> Stand Alone Forms: Work/School Release <Santa Fong NP - Last Filed: 08/04/22 17:41> Interventions: ED Discharge Assessment Last Done: 08/04/22 23:08 <Santa Fong NP - Last Filed: 08/04/22 17:41> Discharge Date/Time: 08/04/22 23:08 <Santa Fong NP - Last Filed: 08/04/22 17:41>
[2022-08-04 17:38] VITALS: BP 126/73; PULSE 88; RESP 18; TEMP 36.6; O2SAT 99; BMI 34.3
[2022-08-04] MEDS: Albuterol Sulfate 90 MCG 8 GM INHALER 2 PUFF INHALE ×2 (18:05→23:06)
[2022-08-04 18:06] VITALS: PULSE 83; RESP 18; O2SAT 91
[2022-08-04 19:17] LABS: MANUAL DIFF FLAG NO
[2022-08-04 19:18] LABS: Basophils Percent Auto 0.3 % (0-2); Eosinophils Absolute Auto 0.2 X10*3/uL (0.0-0.4); Hematocrit 46.2 % (42.0-52.0); Hemoglobin 15.8 g/dl (14.0-18.0); Imm Gran Abs Auto 0.02 X10*3/uL (0.00-0.03); Imm Gran Pct Auto 0.3 % (0.0-0.4); Lymphocytes Absolute Auto 1.8 X10*3/uL (1.2-4.9); Lymphocytes Percent Auto 27.8 % (20-40); Mean Corpuscular HGB Conc 34.2 g/dl (31.0-36.0); Mean Corpuscular Volume 84.8 fL (80.0-98.0); Mean Platelet Volume 10.3 fL (9.4-12.4); Monocytes Absolute Auto 0.6 X10*3/uL (0.1-1.2); Monocytes Percent Auto 8.8 % (2-11); Neutrophils Percent Auto 59.8 % (45-73); Platelet Count 228 X10*3/uL (160-400); Red Blood Count 5.45 X10*6/uL (4.60-5.80); Red Cell Distribution Width 12.9 % (11.0-16.0); White Blood Count 6.6 X10*3/uL (4.8-10.8)
[2022-08-04 19:22] VITALS: BP 128/76; PULSE 90; RESP 20; TEMP 36.9; O2SAT 98
[2022-08-04 19:25] LABS: Prothrombin Time 11.7 SEC (10.0-13.1)
[2022-08-04] MEDS: Albuterol Sulfate (0.083%) 2.5 MG/3 ML VIAL.NEB 10 MG INHALE (19:34)
[2022-08-04 19:35] VITALS: PULSE 90; RESP 20
[2022-08-04 19:36] LABS: Alanine Aminotransferase 33 U/L (0-40); Albumin Level 4.1 g/dL (3.5-5.0); Alkaline Phosphatase 54 U/L (39-117); Anion Gap 13 (12-20); Aspartate Amino Transferase 30 U/L (5-37); Bilirubin Direct 0.2 mg/dL (0.0-0.5); Bilirubin Total 0.9 mg/dL (0.0-1.0); Blood Urea Nitrogen 17 mg/dL (9-16); Calcium 8.9 mg/dL (8.4-10.2); Carbon Dioxide 26 mmol/L (22-29); Chloride 106 mmol/L (96-108); Estimated Glomerular Filt Rate > 60; Glucose Random 88 mg/dL (60-115); Potassium 4.9 mmol/L (3.3-5.1); Sodium 140 mmol/L (135-145); Total Protein 6.6 g/dL (6.5-8.0)
--- NOTE | 2022-08-04 19:47 | PC.NURSE ---
PT REQUESTING PO STEROIDS OPPOSED TO IV RX. V.O RECEIVED FROM RUPERTO DE LA PA[facility]
[2022-08-04 20:05] LABS: IDNOW Serial# 6674DD1D
[2022-08-04 20:08] LABS: COVID-19 Test Positive (Negative)
[2022-08-04 20:09] LABS: Troponin-I High Sensitivity < 3.5 ng/L (<3.5-35.0)
[2022-08-04] MEDS: dexAMETHasone 2 MG TABLET 10 MG PO (20:20)
[2022-08-04 21:04] VITALS: PULSE 98; RESP 20; O2SAT 96
[2022-08-04 21:58] VITALS: BP 147/76; PULSE 98; TEMP 36.9; O2SAT 98
== END 2022-08-04 23:08 | disposition home or self-care (01) ==
PROVIDERS: Nurse Practitioner Family; Emergency Provider Emergency Medicine Emergency Medical Services
DX: U07.1 COVID-19 (principal); R06.02 Shortness of breath; R07.89 Other chest pain; M54.50 Low back pain, unspecified; Z79.899 Other long term (current) drug therapy
CPT/HCPCS: 36415; 71046; 80048; 80076; 84484; 85025; 85610; 87635; 93005; 94640; 96374; 99284; J8540

== ENCOUNTER 2022-09-25 17:33 | Emergency (ER) | payer MEDICAID, SELFPAY ==
--- NOTE | ~2022-09-25 | XR_ITS ---
EXAMINATION: XR ANKLE, LEFT CLINICAL INFORMATION: Pain. Injury. COMPARISON: None available. TECHNIQUE: AP, lateral, and mortise views of the left ankle. FINDINGS: Mild soft tissue swelling is seen about the ankle more so medially. Underlying bony structures appear to be intact. Specifically no acute fracture or dislocation seen. Ankle mortise is in normal alignment. XR/XR ankle LT min 3V IMPRESSION: Mild soft tissue swelling but no acute fracture or dislocation.
[2022-09-25 17:44] VITALS: BP 149/76; PULSE 100; RESP 22; TEMP 36.5; O2SAT 100; BMI 34.4
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
[2022-09-25 17:51] VITALS: BP 147/91; PULSE 108; O2SAT 98
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
[2022-09-25] MEDS: Bacitracin Oint 0.9 GM PACKET 1 APPL TOPICAL (18:58)
== END 2022-09-25 18:58 | disposition home or self-care (01) ==
PROVIDERS: Emergency Provider Student in an Organized Health Care Education/Training Program; PCP Registered Nurse
DX: S90.512A Abrasion, left ankle, initial encounter (principal); S63.502A Unspecified sprain of left wrist, initial encounter; M25.532 Pain in left wrist; V23.49XA Other motorcycle driver injured in collision with car, pick-up truck or van in traffic accident, initial encounter; Y93.9 Activity, unspecified; Y92.410 Unspecified street and highway as the place of occurrence of the external cause; Y99.9 Unspecified external cause status
CPT/HCPCS: 29515; 73610; 99283

== ENCOUNTER 2022-10-14 10:25 | Outpatient (REF) | payer MEDICAID, SELFPAY | END 2022-10-14 10:26 | disposition home or self-care (01) | LOC: HO.HOSX 10:25 | PROVIDERS: Visit Provider Physician Assistant | DX: S93.401A Sprain of unspecified ligament of right ankle, initial encounter (principal) | CPT/HCPCS: 99202 ==

== ENCOUNTER → 2022-11-25 11:17 | Outpatient (BNVA) | payer MEDICAID, SELFPAY | PROVIDERS: PCP Registered Nurse; Visit Provider Physician Assistant | DX: S93.401A Sprain of unspecified ligament of right ankle, initial encounter (principal) | CPT/HCPCS: 99212 ==

== ENCOUNTER 2022-12-04 12:26 | Outpatient (REF) | payer MEDICAID, SELFPAY ==
[2022-12-06 20:58] LABS: TS Negative Control Passed; TS Panel A 2; TS Panel B 1; TS Positive Control Passed; TSpotTB Negative (Negative)
== END 2022-12-04 12:27 | disposition home or self-care (01) ==
LOC: HO.LAB 12:26
PROVIDERS: PCP Registered Nurse; Visit Provider Registered Nurse
DX: Z00.00 Encounter for general adult medical examination without abnormal findings (principal)
CPT/HCPCS: 36415; 86481